=== PATIENT | female | born 1935 | race Caucasian/White ===

== ENCOUNTER 2023-07-14 10:55 | Emergency (ER) | payer MEDICARE ==
[~2023-07-14] VITALS: Ht 157.5 cm; Wt 65.8 kg
[~2023-07-14 10:55] MED LIST: CIPR-262 PO
[2023-07-14 11:08] VITALS: O2SAT 96
[2023-07-14] MEDS ORDERED: SIMV-46 PO (11:14)
[2023-07-14] MEDS ORDERED: APIX5TAB4 PO (11:14)
[2023-07-14] MEDS ORDERED: SOTA80TA PO (11:14)
[2023-07-14] MEDS ORDERED: FLUORESCEIN SODIUM 1 MG STRIP ONE (11:33)
[2023-07-14] MEDS ORDERED: GENT5DRO4 EACHEYE (11:41)
== END 2023-07-14 11:44 | disposition home or self-care (01) ==
LOC: ER 10:57
DX: H10.33 Unspecified acute conjunctivitis, bilateral (principal); I48.91 Unspecified atrial fibrillation; Z79.899 Other long term (current) drug therapy; Z60.2 Problems related to living alone; Z88.1 Allergy status to other antibiotic agents
CPT/HCPCS: A4606; A4663